=== PATIENT | male | born 1960 | race Hispanic/Latino ===

== ENCOUNTER 2021-04-14 16:18 | Inpatient (IN) | payer SELFPAY ==
[~2021-04-14] VITALS: Ht 170.2 cm; Wt 78.5 kg
[2021-04-14] MEDS ORDERED: ASPIRIN 325MG TAB PO SCH (18:00)
[2021-04-14] MEDS ORDERED: 0.9%NACL 1000ML 1,000 ML IV SCH (18:00)
[2021-04-14] MEDS: ONDANSETRON 4MG INJ IVP SCH ×2 (19:17→22:39)
[2021-04-14 19:19] LABS: BASOPHILS % (AUTO) 0.3 % (0.0-5.0); EOSINOPHILS % (AUTO) 4.3 % (0.0-8.0); HEMATOCRIT 44.9 % (42-54); LYMPHOCYTES % (AUTO) 22.9 % (21.0-51.0); MEAN CORPUSCULAR HEMOGLOBIN 32.1 pg (27.0-33.0); MEAN CORPUSCULAR HGB CONC 33.6 g/dL (32.0-36.0); MEAN CORPUSCULAR VOLUME 95.3 fL (79-99); MONOCYTES % (AUTO) 5.7 % (3.0-13.0); NEUTROPHILS % (AUTO) 66.5 % (40.0-77.0); PLATELET COUNT (AUTO) 240 K/uL (130-400); RED BLOOD CELL COUNT(AUTO) 4.71 MIL/uL (4.50-6.20); RED CELL DISTRIBUTION WIDTH 12.3 % (11.0-15.5); WHITE BLOOD COUNT (AUTO) 9.6 K/uL (4.8-10.8)
[2021-04-14 19:31] LABS: CREATININE 1.1 mg/dL (0.5-1.5); POTASSIUM 4.3 mmol/L (3.5-5.1)
[2021-04-14 19:36] LABS: ALBUMIN 4.3 g/dL (3.5-5.0); BILIRUBIN,TOTAL 0.9 mg/dL (0.2-1.0); TOTAL PROTEIN, SERUM 7.7 g/dL (6.0-8.3)
[2021-04-14 19:38] LABS: MAGNESIUM 2.1 mg/dL (1.80-2.40)
[2021-04-14 19:39] LABS: B-TYPE NATRIURETIC PEPTIDE 573 pg/mL (0-100)
[2021-04-14 20:07] LABS: APPEARANCE,URINE Clear (CLEAR); BILIRUBIN,URINE Negative (NEGATIVE); COLOR,URINE Yellow (YELLOW); GLUCOSE, URINE (UA) Negative (NEGATIVE); KETONES,URINE Negative (NEGATIVE); LEUKOCYTE ESTERASE ,URINE Small (NEGATIVE); NITRATE,URINE Negative (NEGATIVE); OCCULT BLOOD,URINE Negative (NEGATIVE); PH,URINE 7.5 (5.0-8.0); PROTEIN,URINE Trace mg/dL (NEGATIVE); UROBILINOGEN,URINE 0.2 mg/dL (0.2-1.0)
[2021-04-14 20:18] LABS: AMPHET/METH SCREEN,URINE NEGATIVE (NEGATIVE); BARBITURATE SCREEN, URINE NEGATIVE (NEGATIVE); BENZODIAZEPINES SCREEN,URINE NEGATIVE (NEGATIVE); CANNABINOID SCREEN,URINE NEGATIVE (NEGATIVE); COCAINE SCREEN,URINE NEGATIVE (NEGATIVE); OPIATE SCREEN,URINE NEGATIVE (NEGATIVE); PHENCYCLIDINE SCREEN,URINE NEGATIVE (NEGATIVE)
[2021-04-14 20:31] LABS: BACTERIA,URINE Rare /HPF (None Seen); RBC,URINE 0-1 /HPF (0-1)
[2021-04-14 20:32] LABS: SQUAMOUS EPITHELIAL CELL,UR Rare /HPF (0-2)
[2021-04-14] MEDS ORDERED: GUAIFENESIN-DM 200/20 MG 10 ML PO PRN (21:00)
[2021-04-14] MEDS ORDERED: LACTULOSE 20 GM/30 ML UDCUP PO PRN (21:00)
[2021-04-14] MEDS ORDERED: MAG/ALUM/SIMETH 30 ML UDCUP PO PRN (21:00)
[2021-04-14] MEDS ORDERED: ONDANSETRON 4MG INJ IV PRN (21:00)
[2021-04-14] MEDS ORDERED: HYDROCODONE/ACETAMINOPHEN 5/325 MG TAB PO PRN (21:00)
[2021-04-14] MEDS ORDERED: NITROGLYCERIN 0.4 MG SL TAB SL PRN (21:00)
[2021-04-14] MEDS ORDERED: MORPHINE 4 MG SYG IV PRN (21:00)
[2021-04-14] MEDS ORDERED: ACETAMINOPHEN 325 MG TAB PO PRN ×2 (21:00)
[2021-04-14] MEDS: ATORVASTATIN 20 MG TABLET PO SCH (22:39)
[2021-04-14] MEDS: FAMOTIDINE 20MG VIAL IV SCH (22:39)
[2021-04-14] MEDS: HEPARIN 5,000 UNIT VIAL SQ SCH (22:49)
[2021-04-14] MEDS: INSULIN HUMULIN R 100 UNIT/ML 3ML SQ SCH (23:00)
[2021-04-15 04:52] LABS: HEMOGLOBIN A1C 9.4 % (4.0-6.0)
[2021-04-15 04:59] LABS: CHOLESTEROL 176 mg/dL (<200); HDL CHOLESTEROL 26 mg/dL (29-71); LDL DIRECT 128 mg/dL (0-99); TRIGLYCERIDES 117 mg/dL (30-200)
[2021-04-15] MEDS: INSULIN HUMULIN R 100 UNIT/ML 3ML SQ SCH ×4 (07:30→21:00)
[2021-04-15] MEDS: FAMOTIDINE 20MG VIAL IV SCH ×2 (09:57→21:16)
[2021-04-15] MEDS: ASPIRIN 81 MG EC TAB PO SCH (09:57)
[2021-04-15] MEDS: METOPROLOL TARTRATE 25 MG TAB PO SCH ×2 (09:58→21:16)
[2021-04-15] MEDS: HEPARIN 5,000 UNIT VIAL SQ SCH ×2 (09:58→21:17)
[2021-04-15] MEDS: LISINOPRIL 10 MG TABLET PO SCH (09:58)
[2021-04-15 20:00] VITALS: BP 127/64
[2021-04-15] MEDS: ATORVASTATIN 20 MG TABLET PO SCH (21:16)
[2021-04-16] VITALS: BP 165/90
[2021-04-16 04:00] VITALS: BP 146/84
[2021-04-16 04:20] LABS: BASOPHILS % (AUTO) 0.4 % (0.0-5.0); HEMATOCRIT 43.1 % (42-54); LYMPHOCYTES % (AUTO) 21.6 % (21.0-51.0); MEAN CORPUSCULAR HEMOGLOBIN 31.4 pg (27.0-33.0); MEAN CORPUSCULAR HGB CONC 32.9 g/dL (32.0-36.0); MEAN CORPUSCULAR VOLUME 95.4 fL (79-99); MONOCYTES % (AUTO) 5.3 % (3.0-13.0); NEUTROPHILS % (AUTO) 69.4 % (40.0-77.0); PLATELET COUNT (AUTO) 214 K/uL (130-400); RED BLOOD CELL COUNT(AUTO) 4.52 MIL/uL (4.50-6.20); RED CELL DISTRIBUTION WIDTH 12.4 % (11.0-15.5)
[2021-04-16 04:33] LABS: ALBUMIN 3.5 g/dL (3.5-5.0); BILIRUBIN,TOTAL 0.8 mg/dL (0.2-1.0); CREATININE 1.2 mg/dL (0.5-1.5); POTASSIUM 4.1 mmol/L (3.5-5.1); TOTAL PROTEIN, SERUM 6.9 g/dL (6.0-8.3)
[2021-04-16] MEDS: INSULIN HUMULIN R 100 UNIT/ML 3ML SQ SCH ×4 (06:53→20:34)
[2021-04-16] MEDS ORDERED: REGADENOSON 0.4 MG/5 ML PF SYG IVP SCH (08:30)
[2021-04-16] MEDS: FAMOTIDINE 20MG VIAL IV SCH ×2 (08:48→20:33)
[2021-04-16] MEDS: LISINOPRIL 10 MG TABLET PO SCH (08:48)
[2021-04-16] MEDS: METOPROLOL TARTRATE 25 MG TAB PO SCH (08:48)
[2021-04-16] MEDS: ASPIRIN 81 MG EC TAB PO SCH (08:48)
[2021-04-16 08:49] VITALS: BP 161/84
[2021-04-16] MEDS: HEPARIN 5,000 UNIT VIAL SQ SCH ×2 (08:49→20:28)
[2021-04-16 12:34] VITALS: BP 122/99
[2021-04-16 16:30] VITALS: BP 146/71
[2021-04-16] MEDS: METFORMIN HCL 850 MG TABLET PO SCH (18:13)
[2021-04-16 20:32] VITALS: BP 143/84
[2021-04-16] MEDS: BUPROPION HCL 150 MG TABLET.SA PO SCH (20:33)
[2021-04-16] MEDS ORDERED: ATORVASTATIN 40 MG TABLET PO SCH (21:00)
[2021-04-17 00:08] VITALS: BP 150/72
[2021-04-17 04:32] VITALS: BP 143/76
[2021-04-17] MEDS: INSULIN HUMULIN R 100 UNIT/ML 3ML SQ SCH ×2 (05:58→11:13)
[2021-04-17 08:30] VITALS: BP 145/78
[2021-04-17] MEDS ORDERED: METOPROLOL SUCCINATE 50 MG TAB.SR.24H PO SCH (09:00)
[2021-04-17] MEDS: METFORMIN HCL 850 MG TABLET PO SCH (10:55)
[2021-04-17] MEDS: LISINOPRIL 10 MG TABLET PO SCH (10:56)
[2021-04-17] MEDS: ASPIRIN 81 MG EC TAB PO SCH (10:56)
[2021-04-17] MEDS: FAMOTIDINE 20MG VIAL IV SCH (10:56)
[2021-04-17] MEDS: BUPROPION HCL 150 MG TABLET.SA PO SCH (10:57)
[2021-04-17] MEDS: HEPARIN 5,000 UNIT VIAL SQ SCH (11:11)
[2021-04-17 11:37] VITALS: BP 148/73
[2021-04-17] MEDS ORDERED: METO50TA9 PO (13:25)
[2021-04-17] MEDS ORDERED: AEC81 PO (13:25)
[2021-04-17] MEDS ORDERED: Metformin Hcl PO (13:25)
[2021-04-17] MEDS ORDERED: BUPR150T3 PO (13:25)
[2021-04-17] MEDS ORDERED: LISI10TA24 PO (13:25)
[2021-04-17] MEDS ORDERED: ATOR40TA69 PO (13:25)
== END 2021-04-17 15:30 | disposition home or self-care (01) | DRG 313 ==
LOC: EDH 16:18 → EDHIP 16:19 → 4DH 04-15 17:15
PROVIDERS: ADMIT Hospitalist; ATTEND Hospitalist
DX: R07.89 Other chest pain (principal); I25.10 Atherosclerotic heart disease of native coronary artery without angina pectoris; E78.5 Hyperlipidemia, unspecified; E11.65 Type 2 diabetes mellitus with hyperglycemia; F17.210 Nicotine dependence, cigarettes, uncomplicated; I65.22 Occlusion and stenosis of left carotid artery; I11.0 Hypertensive heart disease with heart failure; I50.9 Heart failure, unspecified; E78.00 Pure hypercholesterolemia, unspecified; I44.30 Unspecified atrioventricular block; I25.2 Old myocardial infarction; Z95.1 Presence of aortocoronary bypass graft; Z95.5 Presence of coronary angioplasty implant and graft; Z79.82 Long term (current) use of aspirin; Z79.899 Other long term (current) drug therapy; Z91.19 Patient's noncompliance with other medical treatment and regimen; Z83.3 Family history of diabetes mellitus; Z82.49 Family history of ischemic heart disease and other diseases of the circulatory system
CPT/HCPCS: 36415; 71045; 76705; 78452; 80053; 80061; 80305; 81001; 82550; 82948; 83036; 83690; 83735; 83880; 84484; 85025; 85378; 87088; 93005; 93017; 93880; 96374; A9500; G0378; J1644; J1815; J2405; J2785; J3490